=== PATIENT | female | born 1975 | race Caucasian/White ===

== ENCOUNTER 2016-08-30 11:18 | Emergency (ER) | payer OTHER ==
[~2016-08-30] VITALS: Ht 152.4 cm; Wt 81.6 kg
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
[2016-08-30 12:30] LABS: ABSOLUTE BASOPHIL COUNT 0 /CUMM (0.0-0.2); ABSOLUTE EOSINOPHIL COUNT 0.2 /CUMM (0.0-0.7); ABSOLUTE GRANULOCYTE CT 5.4 /CUMM (1.4-6.5); ABSOLUTE LYMPH COUNT 1.9 /CUMM (1.2-3.4); ABSOLUTE MONOCYTE COUNT 0.4 /CUMM (0.10-0.60); BASOPHIL % 0.4 % (0.0-2.0); EOSINOPHIL % 2.4 % (0-5); HEMATOCRIT 39.2 % (37-47); MEAN CORPUSCULAR HGB 30.6 PG (27.0-31.0); MEAN CORPUSCULAR HGB CONC 35.4 G/DL (33.0-37.0); MEAN CORPUSCULAR VOLUME 86.6 FL (81.0-99.0); MEAN PLATELET VOLUME 8.2 FL (7.4-10.4); PLATELET COUNT 256 /CUMM (130-400); RBC DISTRIBUTION WIDTH 13.1 % (11.5-14.5); RED BLOOD CELL CT 4.52 /CUMM (4.20-5.40)
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
[2016-08-30] MEDS ORDERED: ROBAXIN-750750 M1 PO (13:41)
[2016-08-30 14:07] VITALS: BP 142/80
== END 2016-08-30 14:08 ==
LOC: ERH 11:18
PROVIDERS: Physician Assistant Surgical
DX: T14.8 Other injury of unspecified body region (principal); V43.53XA Car driver injured in collision with pick-up truck in traffic accident, initial encounter
CPT/HCPCS: 74177